=== PATIENT | female | born 1950 | race Caucasian/White ===

== ENCOUNTER 2018-08-28 06:36 | Day surgery (SDC) | payer MEDICARE, OTHER ==
[~2018-08-28 06:36] MED LIST: Lactated Ringers 1,000 ML IV SCH
[2018-08-28] MEDS ORDERED: Propofol 200 MG/20 ML SDV ONE ×2 (07:00→08:25)
[2018-08-28] MEDS ORDERED: Midazolam 1 MG/ML 2 ML SDV ONE (07:01)
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
[2018-08-28] MEDS ORDERED: Bupivacaine 0.5% 30 ML SDV ONE (07:20)
[2018-08-28] MEDS ORDERED: Lidocaine 1% 20 ML MDV ONE (07:21)
[2018-08-28] MEDS ORDERED: Glycopyrrolate 0.2 MG/ML SDV ONE (07:36)
[2018-08-28] MEDS ORDERED: Lidocaine 2% 5 ML SDV ONE (07:49)
[2018-08-28] MEDS ORDERED: Phenylephrine/Normal Saline 100 MCG/ML 10 ML Syringe ONE ×2 (07:58→08:24)
[2018-08-28] MEDS ORDERED: traMADol 50 MG Tab PO PRN (08:56)
[2018-08-28] MEDS ORDERED: Acetaminophen 325 MG Tab PO PRN (08:56)
[2018-08-28] MEDS ORDERED: Lactated Ringers 1,000 ML IV SCH (09:00)
--- NOTE | 2018-08-28 09:03 | PCM.OPNOTE ---
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
--- NOTE | 2018-08-28 13:26 | OR ---
SURGEON: Harish Delgado M.D. DATE OF PROCEDURE: 08/28/2018 OPERATION PERFORMED: Excision of 1.5 cm right forearm lesion with 3 mm margin and layered 10 cm closure. PRIMARY SURGEON: Harish Delgado MD. ANESTHESIA: Local MAC. ASA CLASSIFICATION: III. PREOPERATIVE DIAGNOSIS: Enlarging right forearm lesion. POSTOPERATIVE DIAGNOSIS: Frozen section diagnosis of squamous cell carcinoma with clear margins. DESCRIPTION OF PROCEDURE: The patient was taken to the operating room and placed on the operating table in the supine position. Time-out was called for appropriate identification of the patient and procedure. The surgical site had been marked prior to the patient entering the operating room. The patient was sedated per anesthesia protocol. The right forearm was prepped with DuraPrep solution. Sterile drapes were applied. The skin incision was marked out to allow for 3 mm margin on the medial and lateral aspects. Skin incision was then made and the specimen removed using electrocautery. Bleeding sites were electrocoagulated. A 2-0 silk suture was placed at the superior margin. The specimen was then sent to pathology for frozen section. The frozen section diagnosis was a completely excised squamous cell skin cancer. Wound was then undermined to allow for closure. Bleeding sites were electrocoagulated. The subcutaneous tissue was reapproximated with interrupted 3-0 Vicryl. The skin edges were reapproximated with interrupted 3-0 nylon sutures. This did allow for good closure, but the closure was tight. The arm was then cleansed and the incision dressed with a sterile Tegaderm pad. Sponge, needle, and instrument counts were all correct. The patient tolerated the procedure well and was taken to recovery room in stable condition. ESTIMATED BLOOD LOSS: 10 mL. INTRAOPERATIVE FLUID REPLACEMENT: 1000 mL of crystalloid. BOOM / LYRIC /[id number]
== END 2018-08-28 09:40 | disposition home or self-care (01) ==
LOC: MW.SDS 06:36
PROVIDERS: ATTEND Surgery
DX: C44.622 Squamous cell carcinoma of skin of right upper limb, including shoulder (principal); I10 Essential (primary) hypertension; E78.00 Pure hypercholesterolemia, unspecified; K21.9 Gastro-esophageal reflux disease without esophagitis; F17.210 Nicotine dependence, cigarettes, uncomplicated; G43.909 Migraine, unspecified, not intractable, without status migrainosus; Z88.0 Allergy status to penicillin; Z79.82 Long term (current) use of aspirin; Z79.899 Other long term (current) drug therapy
CPT/HCPCS: 11603; 12034; J2001; J2250; J2370; J2704; J3490; J7120; 00400